=== PATIENT | female | born 1965 ===

== ENCOUNTER 2024-04-11 09:57 | Outpatient (AMB) | payer OTHER, SELFPAY ==
--- NOTE | 2024-04-11 09:59 | MHC.PC.OV ---
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 Intake Note: Patient is here with history of asthma. 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 HPI Details New Patient? ?? Prior PCP:?Dr Jones Last office visit/CPE:? about 1 yr Acute issue(s):? ?? PMHx:? Asthma, IBS, Colon Polyps - last colonoscopy at [facility], Uterine Polyps - Dr Ornelas. L breast lump SurgHx:?L Lumpectomy FHx:? Dad: Lung CA. Mom: TIA. Breast CA in [place], Aunt, Older sister. SocHx:? Nonsmoker. EtOH None. No drugs PFSH Medical History (Updated 04/11/24 @ 10:35 by Dawit Walden) Uterine polyp IBS (irritable bowel syndrome) Allergies Asthma Surgical History (Updated 04/11/24 @ 10:11 by Bernie Gutierrez CMA) H/O colonoscopy H/O lumpectomy Family History (Updated 04/11/24 @ 10:14 by Bernie Gutierrez CMA) Maternal Aunt Breast cancer Maternal Grandmother Breast cancer Father Lung cancer Social History Household Members: Spouse Both parents involved: No Caregiver staying overnight: No Housing: House Are you a primary career placement services counselor to a significant other at home: No Do you presently have visiting nurse or other home services: No 75 years or older and lives alone: No Alcohol intake: never Patient Tobacco Use Status: Never used Tobacco e-Cigarette/Vaping Use: Never Used service: No Current occupational status: employed Current occupation: [employer]. Cognitive needs: No Hearing needs: No Vision needs: Yes (Patient wears glasses.) Questionnaire ACT Questionnaire In the past 4 weeks, how much of the time did your asthma keep you from getting as much done at work, school or at home?: A little of the time During the past 4 weeks, how often have you had shortness of breath?: 1-2 times a week During the past 4 weeks, how often did your asthma symptoms wake you up at night or earlier than usual in the morning?: Not at all During the past 4 weeks, how often have you had to use your rescue inhaler or nebulizer medication?: Not at all How would you rate your asthma control during the past 4 weeks?: Well controlled Score: 22 Review of Systems Const Denies chills, Denies fatigue, Denies fever(s), Denies headache(s) and Denies weakness ENT Denies dizziness and Denies headache(s) Card Denies chest pain, Denies lightheadedness, Denies dyspnea and Denies other (Palpitations) Resp Denies cough, Denies dyspnea, Denies wheezing and Denies other ( shortness of breath) Musc Denies numbness and Denies tingling Neuro Denies dizziness, Denies headache(s), Denies numbness, Denies tingling, Denies paresthesias and Denies weakness Psych Denies anxiety and Denies depression Endo Denies fatigue Aller/Immun Denies wheezing Physical exam (Primary Care) BMI result Body Mass Index 29.7 Tobacco/Smoking Status: Tobacco use Status Tobacco use date assessed 04/11/24 04/11/24 10:13 Patient Tobacco Use Status Never used Tobacco 04/11/24 10:13 e-Cigarette/Vaping Use Never Used 04/11/24 10:13 Const General: no acute distress and well developed Nutritional Appearance: well nourished Orientation/consciousness: patient oriented x3 HENMT Head: Yes normocephalic and Yes atraumatic Eyes General: appearance normal, both eyes and all related structures Pupils: Equal, round and reactive pupils present EOM: EOMs intact bilaterally Resp Effort & Inspection: normal respiratory effort Auscultation: clear to auscultation bilaterally Cardio Rate: regular rate Rhythm: regular rhythm Heart sounds: S1 normal heart sound present, S2 normal heart sound present, no gallops, no murmurs and no rubs Neuro General: patient oriented x3 and gait normal Cranial nerves: Yes Equal, round and reactive pupils present Psych Affect: normal affect Assessment and Plan Assessment & Plan (1) Asthma: Code(s): J45.909 - Unspecified asthma, uncomplicated Plan: Triggers?include?exercise Will?send?script?for?Ventolin?inhaler-she?notes?that?last?script?for?an?albuterol?inhaler?was?over?70?dollars.??May?need?to?try?a?different?brand She?can?try?pretreating?with?albuterol?before?exercise (2) History of left breast cancer: Code(s): Z85.3 - Personal history of malignant neoplasm of breast Plan: S/p?lumpectomy (3) History of colon polyps: Code(s): Z86.010 - Personal history of colonic polyps Plan: Will?request?report (4) Uterine polyp: Code(s): N84.0 - Polyp of corpus uteri Plan: Follow-up?with??[facility]?as?recommended (5) IBS (irritable bowel syndrome): Code(s): K58.9 - Irritable bowel syndrome without diarrhea Plan: History?of?IBS She?says?that?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 Panel Fast Today Z00.00 - Encounter for general adult medical examination without abnormal findings Lipid Panel Today Z00.00 - Encounter for general adult medical examination without abnormal findings TSH reflex Free T4 Today Z00.00 - Encounter for general adult medical examination without abnormal findings Medications: New albuterol sulfate 90 mcg/actuation (Ventolin HFA) 2 puffs inhalation Q4-6H 30 days PRN 8.5 grams 3RF shortness of breath or wheezing Coding Level of Care Code New Pt Level 3 (79514) Diagnoses Asthma J45.909 History of left breast cancer Z85.3 History of colon polyps Z86.010 Uterine polyp N84.0 IBS (irritable bowel syndrome) K58.9 Laboratory exam ordered as part of routine general medical examination Z00.00
[2024-04-11 10:02] VITALS: BP 110/58; PULSE 82; O2SAT 97; BMI 29.7
== END 2024-04-11 10:43 | disposition home or self-care (01) ==
PROVIDERS: PCP Family Medicine; Visit Provider Family Medicine
DX: J45.909 Unspecified asthma, uncomplicated (principal); Z85.3 Personal history of malignant neoplasm of breast; Z86.010 Personal history of colon polyps; N84.0 Polyp of corpus uteri; K58.9 Irritable bowel syndrome, unspecified; Z00.00 Encounter for general adult medical examination without abnormal findings
CPT/HCPCS: 99203

== ENCOUNTER 2024-04-12 08:58 | Outpatient (REF) | payer OTHER, SELFPAY ==
[2024-04-12 11:18] LABS: Appearance Urine Clear; Color Urine Yellow; Glucose Urine UA Negative (Negative); Leukocyte Esterase Urine Moderate (2+) (Negative); Nitrite Urine Negative (Negative); PH 6.5 (5.0-9.0); UMIC TRIGGER UA YES; Urine Blood Negative (Negative); Urine Ketones Negative (Negative); Urine Protein Negative (Neg-Trace)
[2024-04-12 11:26] LABS: Bacteria Urine None Seen (None Seen); Hyaline Casts Urine 0-2 /LPF (0-2); RBC Urine 0-2 /HPF (0-2)
[2024-04-12 11:47] LABS: Alanine Aminotransferase 11 U/L (0-31); Albumin Level 3.8 g/dL (3.5-5.0); Alkaline Phosphatase 68 U/L (39-117); Anion Gap 9 (12-20); Aspartate Amino Transferase 13 U/L (5-31); Bilirubin Total 0.6 mg/dL (0.0-1.0); Blood Urea Nitrogen 14 mg/dL (9-16); Calcium 8.8 mg/dL (8.4-10.2); Carbon Dioxide 27 mmol/L (22-29); Chloride 104 mmol/L (96-108); Cholesterol 251 mg/dL (<200); Estimated Glomerular Filt Rate > 60; Glucose Fasting 98 mg/dL (60-99); HDL Cholesterol 44 mg/dL (>40); LDL Cholesterol Calculated 188 mg/dL (<100); Potassium 4.1 mmol/L (3.3-5.1); Sodium 136 mmol/L (135-145); TSH reflex Free T4 3.61 uIU/mL (0.32-4.0); Total Protein 6.7 g/dL (6.5-8.0); Triglycerides 99 mg/dL (<150)
[2024-04-12 12:10] LABS: Creatinine Urine 141.83 mg/dL; Microalbum/Creatinine Ratio Ur 4.2 ug/mg cr (<30)
== END 2024-04-12 08:59 | disposition home or self-care (01) ==
LOC: HO.WFDLDS 08:58
PROVIDERS: Visit Provider Family Medicine
DX: Z00.00 Encounter for general adult medical examination without abnormal findings (principal); I10 Essential (primary) hypertension
CPT/HCPCS: 36415; 80053; 80061; 81001; 81003; 82043; 82570; 84443

== ENCOUNTER 2024-07-06 16:06 | Outpatient (AMB) | payer OTHER, SELFPAY ==
--- NOTE | 2024-07-06 16:18 | A.OFFPC_ITS ---
Vital Signs 07/06/24 16:23 Height 5 ft 8 in Weight 191 lb 4 oz BMI 29.1 BP 120/60 Blood Pressure Location Lt brachial Position Sitting Respiration 12 Pulse 98 Pulse Source Pulse Oximeter Temp 97.7 F Temp Source Tympanic Pulse Oximetry (%) 98 Oxygen Delivery Method Room Air Intake Visit Reasons: CPE with f/u labs and health maint. Intake Note: CPE Is last menstrual period known: No Post menopausal: Yes Patient : No Allergies No Known Allergies Allergy (Verified 07/06/24 16:22) Medication List - Last Reconciled 07/06/24 by Sanjiv Wallace MD albuterol sulfate 90 mcg/actuation (Ventolin HFA) 2 puffs inhalation Q4-6H PRN 30 days norethindrone ac-eth estradiol 1-20 mg-mcg (Junel) tabs PO Tobacco use date assessed: 04/11/24 Dental Screening Dental Screen Date: 04/11/24 HPI CPE with f/u labs and health maint. HPI Details 58 y/o female presents for a CPE with f/ u labs and health maintenance. Labs drawn 04/12/24. Reviewed labs with pt. Triglycerides 99. TC 251. LDL 188. HDL 44. TSH 3.61. Pt notes Ventolin worked well for her asthma. Pt reports chest tightness. Denies any chest pain on exertion. She notes it could be due to anxiety. Reports hx of colon polyps. [facility], [facility] Medical History (Updated 07/06/24 @ 16:57 by Dawit Walden) Uterine polyp IBS (irritable bowel syndrome) Allergies Asthma Surgical History (Updated 04/11/24 @ 10:11 by Bernie Gutierrez CMA) H/O colonoscopy H/O lumpectomy Family History (Updated 04/11/24 @ 10:14 by Bernie Gutierrez CMA) Maternal Aunt Breast cancer Maternal Grandmother Breast cancer Father Lung cancer Social History (Updated 04/11/24 @ 10:18 by Bernie Gutierrez CMA) Household Members: Spouse Both parents involved: No Caregiver staying overnight: No Housing: House Are you a primary animal daycare provider to a significant other at home: No Do you presently have visiting nurse or other home services: No 75 years or older and lives alone: No Alcohol intake: never Patient Tobacco Use Status: Never used Tobacco e-Cigarette/Vaping Use: Never Used Patient : No service: No Current occupational status: employed Current occupation: [employer]. Cognitive needs: No Hearing needs: No Vision needs: Yes (Patient wears glasses.) Questionnaire PHQ-9 Over the last 2 weeks, how often have you been bothered by any of the following problems? 1. Little interest or pleasure in doing things: not at all 2. Feeling down, depressed, or hopeless: not at all 3. Trouble falling or staying asleep, or sleeping too much: more than half the days 4. Feeling tired or having little energy: not at all 5. Poor appetite or overeating: several days 6. Feeling bad about yourself - or that you are a failure or have let yourself or your family down: not at all 7. Trouble concentrating on things, such as reading the newspaper or watching television: not at all 8. Moving or speaking so slowly that other people could have noticed. Or the opposite - being so fidgety or restless that you have been moving around a lot more than usual: not at all 9. Thoughts that you would be better off or of hurting yourself in some way: not at all Total score: 3 Depression Screening Interpretation: Negative Depression Screening Done: Yes 37117 - PHQ-9 Billing: Yes Source: Developed by Drs. Bernardino Preston, Marie Lainez, Nitin Herrera and colleagues, with an educational darius from [employer]. Thrive Questionnaire Date Thrive assessed: 07/06/24 I am a: Patient What is your living situation today?: I have a steady place to live Within the past 12 months, did the food you bought not last and you didn't have the money to get more?: Never true Within the past 12 months, did you worry whether your food would run out before you got money to buy more?: Never true Do you have trouble paying for medicines?: No Do you have trouble getting transportation to medical appointments?: No Do you have trouble paying your heating and electricity bill?: No Do you have trouble taking care of your child, family member or friend?: No Do you have trouble with day-to-day activities such as bathing, preparing meals, shopping, managing finances, etc.?: No Are you currently unemployed and looking for a job?: No Are you interested in more education?: No Please select the resources that you would like help with: None Currently or been in a relationship where the following occur: No concerns reported THRIVE Score: 0 AUDIT C Alcohol Use Questionnaire (AUDIT-C) 1. How often do you have a drink containing alcohol?: Never 3. How often do you have six or more drinks on one occasion?: Never Total Score: 0 JERRICA-7 AMB Questionnaire JERRICA-7 Date JERRICA - 7 assessed: 07/06/24 Feeling nervous, anxious, or on edge: 0 = Not at all Not being able to stop or control worryin = Not at all Worrying too much about different things: 0 = Not at all Trouble relaxin = Not at all Being so restless that it is hard to sit still: 0 = Not at all Becoming easily annoyed or irritable: 0 = Not at all Feeling afraid as if something awful might happen: 0 = Not at all Total JERRICA-7 score (0-4 normal; 5-9 mild; 10-14 moderate; 15-21 severe): 0 Source: Developed by Drs. Bernardino Preston, Marie Lainez, Nitin Herrera and colleagues, with an educational darius from [employer]. JERRICA-7 Assessment Billing JERRICA-7 Assessment Tool: JERRICA-7 Assessment 15155 Review of Systems Const Denies chills, Denies fatigue, Denies fever(s), Denies headache(s) and Denies weakness Eyes Denies change in vision ENT Denies dizziness, Denies headache(s), Denies hearing loss, Denies nasal congestion, Denies sinus pain, Denies sinus pressure and Denies sore throat Card Denies chest pain, Denies lightheadedness, Denies dyspnea and Denies other (palpitations) Resp Denies cough, Denies dyspnea and Denies wheezing GI Denies abdominal pain, Denies melena, Denies hematochezia, Denies change in bowel habits, Denies dyspepsia and Denies nausea Denies hematuria and Denies dysuria Musc Denies abnormal gait, Denies myalgias, Denies arthralgias, Denies numbness and Denies tingling Skin/Breast Denies rash, Denies unusual bruising and Denies wounds Neuro Denies abnormal gait, Denies dizziness, Denies headache(s), Denies memory loss, Denies numbness, Denies Sensory deficit (Neuro), Denies tingling and Denies weakness Psych Denies anxiety, Denies depression and Denies memory loss Endo Denies cold intolerance, Denies fatigue, Denies heat intolerance, Denies polydipsia and Denies polyuria Kevon/Lymph Denies easy bleeding and Denies easy bruising Aller/Immun Denies wheezing Physical exam (Primary Care) Vital Signs: Last Vital Signs Temp 97.7 F 07/06/24 16:23 Pulse 98 07/06/24 16:23 Resp 12 07/06/24 16:23 BP 120/60 07/06/24 16:23 Pulse Ox 98 07/06/24 16:23 Oxygen Delivery Method Room Air 07/06/24 16:23 BMI result Body Mass Index 29.1 Tobacco/Smoking Status: Tobacco use Status Tobacco use date assessed 04/11/24 07/06/24 16:27 Patient Tobacco Use Status Never used Tobacco 07/06/24 16:27 e-Cigarette/Vaping Use Never Used 07/06/24 16:27 PHQ-9: PHQ-9 Score PHQ-9: Total score 3 07/06/24 16:27 Depression Screening Interpretation: Negative Thrive Assessment: Date of Thrive Assessment Date Thrive assessed 07/06/24 07/06/24 16:27 Currently or been in a relationship where the following occur: No concerns reported Const General: no acute distress, well developed, alert and awake Nutritional Appearance: well nourished Orientation/consciousness: patient oriented x3 HENMT Head: Yes normocephalic and Yes atraumatic Ears: hearing grossly normal bilaterally and TM's normal bilaterally General nose exam: Normal external nose present and Normal nares present Mouth: Normal oral and palatal mucosa present and moist mucous membranes Teeth and gingiva: dentition normal Throat: Yes posterior oropharynx normal Eyes General: appearance normal, both eyes and all related structures Pupils: Equal, round and reactive pupils present and Pupil accommodation reflex normal EOM: EOMs intact bilaterally Neck Neck: Yes normal visual inspection, Yes no lymphadenopathy and Yes trachea midli ne Thyroid: Thyroid normal Carotids: no bruits Lymphatic: no lymphadenopathy noted Chest Chest palpation & inspection: normal inspection of the chest Resp Effort & Inspection: normal respiratory effort Auscultation: clear to auscultation bilaterally Cardio Rate: regular rate Rhythm: regular rhythm Heart sounds: S1 normal heart sound present, S2 normal heart sound present, no gallops, no murmurs and no rubs Bruits: no abdominal aortic bruits and no carotid bruits GI Palpation (GI): No Abdominal aortic bruit present, Soft to palpation, nontender, No hepatosplenomegaly present and No Rebound tenderness present Auscultation: normal bowel sounds General: Yes no CVA tenderness Back/Spine/Pelvis Back: no CVA tenderness Cervical Spine: cervical ROM normal and No Cervical spine tenderness Thoracic/Lumbar Spine: thoraco-lumbar ROM normal, No pain with thoraco-lumbar ROM, No thoracic spinal tenderness and No lumbar spinal tenderness Skin Lesions: no lesions Rashes: no rashes Trauma: no lacerations or abrasions Wounds: no wounds Nails: normal Neuro General: patient oriented x3 Cranial nerves: Yes Equal, round and reactive pupils present Cognition (Neuro): normal cognition Gait exam (Neuro): Normal gait present Motor exam (neuro): 5/5 motor strength present throughout Sensory Exam: No Sensory deficit (Neuro) Deep tendon reflexes (DTR's): Right patellar reflex intensity grade: 2+ and Left patellar reflex intensity grade: 2+ Extrem General: Yes normal to inspection and No edema Psych Appearance: grossly normal Affect: normal affect Attitude: cooperative Thought process: Normal thought process present Assessment and Plan Assessment & Plan (1) Adult general medical exam: Code(s): Z00.00 - Encounter for general adult medical examination without abnormal findings Plan: 58-year-old?female?presents?for?complete?physical?exam Encouraged?healthy?diet?with?active?lifestyle?and?plenty?of?exercise (2) Hypercholesteremia: Code(s): E78.00 - Pure hypercholesterolemia, unspecified Plan: LDL?cholesterol?is?too?high. Encouraged?a?diet?low?in?saturated?fats?and?cholesterol Encouraged?exercise?and?weight?loss She?will?work?on?these?lifestyle?changes?and?get?her?blood?drawn?prior?to?next?v isit?so?we?can?review We?discussed?that?if?she?is?not?able?to?bring?her?cholesterol?down?we?should?t alk?about?medication. (3) Asthma: Code(s): J45.909 - Unspecified asthma, uncomplicated Plan: Patient?was?able?to?pick?up?a?Ventolin?script?and?she?is?using?this.??This?has?h elped. She?does?noted?occasional?chest?tightness?and?albuterol?helps?with?this (4) Chest tightness: Code(s): R07.89 - Other chest pain Plan: Patient?notices?some?chest?tightness?which?she?associates?with?st ress.??Not?associated?with?physical?exertion but?can?feel?qualitatively?different?than?tightness?from?asthma. She?also?has?high?cholesterol Will?get?EKG?at?the?beginning?of?her?next?visit. Advised?he r?if?she?is?having?chest?pain?that?does?not?improve?in?a?couple?of?minutes?with? relaxation,?she?should?seek?medical?attention. (5) Screening for colon cancer: Code(s): Z12.11 - Encounter for screening for malignant neoplasm of colon Plan: Colonoscopy at [facility] (6) Screening for cervical cancer: Code(s): Z12.4 - Encounter for screening for malignant neoplasm of cervix Plan: Managed?by??[facility] Will?request?report (7) Breast cancer screening by mammogram: Code(s): Z12.31 - Encounter for screening mammogram for malignant neoplasm of breast Plan: Mammogram last yr and managed by [facility] Also pap smear Orders: Orders Comprehensive [place]. Panel Fast Today E78.00 - Pure hypercholesterolemia, unspecified, Z00.00 - Encounter for general adult medical examination without abnormal findings AMB EKG-In Office Today E78.00 - Pure hypercholesterolemia, unspecified, R07.89 - Other chest pain Lipid Panel Today E78.00 - Pure hypercholesterolemia, unspecified, Z00.00 - Encounter for general adult medical examination without abnormal findings Coding Level of Care Code Est Pt Level 3 (80718) Est Pt Prev Care 40-64y(65817) Diagnoses Adult general medical exam Z00.00 Hypercholesteremia E78.00 Asthma J45.909 Chest tightness R07.89 Screening for colon cancer Z12.11 Screening for cervical cancer Z12.4 Breast cancer screening by mammogram Z12.31 Additional Codes JERRICA-7 Assessment Billing - JERRICA-7 Assessment Tool: JERRICA-7 Assessment 30203 ([id number])
[2024-07-06 16:23] VITALS: BP 120/60; PULSE 98; RESP 12; TEMP 36.5; O2SAT 98; BMI 29.1
== END 2024-07-06 17:10 | disposition home or self-care (01) ==
PROVIDERS: PCP Family Medicine; Visit Provider Family Medicine
DX: Z00.00 Encounter for general adult medical examination without abnormal findings (principal); R07.89 Other chest pain; E78.00 Pure hypercholesterolemia, unspecified; J45.909 Unspecified asthma, uncomplicated; Z12.11 Encounter for screening for malignant neoplasm of colon; Z12.31 Encounter for screening mammogram for malignant neoplasm of breast

== ENCOUNTER → 2024-07-06 16:06 | Outpatient (BNVA) | payer OTHER, SELFPAY | PROVIDERS: PCP Family Medicine; Visit Provider Family Medicine | DX: Z00.00 Encounter for general adult medical examination without abnormal findings (principal); E78.00 Pure hypercholesterolemia, unspecified; J45.909 Unspecified asthma, uncomplicated; R07.89 Other chest pain | CPT/HCPCS: 96127 ==

== ENCOUNTER 2024-10-17 14:20 | Outpatient (AMB) | payer OTHER, SELFPAY ==
--- NOTE | 2024-10-17 15:28 | A.OFFPC_ITS ---
Vital Signs 10/17/24 15:51 Height 5 ft 8 in Weight 186 lb BMI 28.3 BP 100/60 Blood Pressure Location Rt brachial Position Sitting Respiration 16 Pulse 72 Temp 98.4 F Temp Source Oral Pulse Oximetry (%) 99 Oxygen Delivery Method Room Air Intake Visit Reasons: f/u hypercholesterolemia Allergies No Known Allergies Allergy (Verified 10/17/24 15:53) Tobacco use date assessed: 04/11/24 Dental Screening Dental Screen Date: 04/11/24 HPI f/u hypercholesterolemia HPI Details 58 y/o female presents to f/u HLD. Pt had some chest tightness with emotional stress. Not with physical exertion. No recent lipid panel to review for her lipids. HPI Comments History of Present Illness Details Documentation assistance for Sanjiv Wallace MD, was provided by Dawit Walden,? Grab Hooker on 10/17/2024 at 3:45 PM EST. I, Dr. Wallace, have read, observed, and verified documentation. ?? PFS Medical History (Updated 10/17/24 @ 16:04 by Dawit Walden) Uterine polyp IBS (irritable bowel syndrome) Allergies Asthma Surgical History (Updated 04/11/24 @ 10:11 by Bernie Gutierrez CMA) H/O colonoscopy H/O lumpectomy Family History (Updated 04/11/24 @ 10:14 by Bernie Gutierrez CMA) Maternal Aunt Breast cancer Maternal Grandmother Breast cancer Father Lung cancer Social History (Updated 04/11/24 @ 10:18 by Bernie Gutierrez CMA) Household Members: Spouse Both parents involved: No Caregiver staying overnight: No Housing: House Are you a primary insurance healthcare consultant to a significant other at home: No Do you presently have visiting nurse or other home services: No 75 years or older and lives alone: No Alcohol intake: never Patient Tobacco Use Status: Never used Tobacco e-Cigarette/Vaping Use: Never Used service: No Current occupational status: employed Current occupation: [employer]. Cognitive needs: No Hearing needs: No Vision needs: Yes (Patient wears glasses.) Questionnaire Thrive Questionnaire Date Thrive assessed: 07/06/24 I am a: Patient What is your living situation today?: I choose not to answer this question Within the past 12 months, did the food you bought not last and you didn't have the money to get more?: I choose not to answer this question Within the past 12 months, did you worry whether your food would run out before you got money to buy more?: I choose not to answer this question Do you have trouble paying for medicines?: I choose not to answer this question Do you have trouble getting transportation to medical appointments?: I choose not to answer this question Do you have trouble paying your heating and electricity bill?: I choose not to answer this question Do you have trouble taking care of your child, family member or friend?: I choose not to answer this question Do you have trouble with day-to-day activities such as bathing, preparing meals, shopping, managing finances, etc.?: I choose not to answer this question Are you currently unemployed and looking for a job?: I choose not to answer this question Are you interested in more education?: I choose not to answer this question Please select the resources that you would like help with: None Currently or been in a relationship where the following occur: I choose not to answer THRIVE Score: 0 AUDIT C Alcohol Use Questionnaire (AUDIT-C) 1. How often do you have a drink containing alcohol?: Never Total Score: 0 JERRICA-7 AMB Questionnaire JERRICA-7 Date JERRICA - 7 assessed: 07/06/24 Feeling nervous, anxious, or on edge: 0 = Not at all Not being able to stop or control worryin = Not at all Worrying too much about different things: 0 = Not at all Trouble relaxin = Not at all Being so restless that it is hard to sit still: 0 = Not at all Becoming easily annoyed or irritable: 0 = Not at all Feeling afraid as if something awful might happen: 0 = Not at all Total JERRICA-7 score (0-4 normal; 5-9 mild; 10-14 moderate; 15-21 severe): 0 Source: Developed by Drs. Bernardino Preston, Marie Lainez, Nitin Herrera and colleagues, with an educational darius from [email or web address]. Review of Systems Const Denies chills, Denies fatigue, Denies fever(s), Denies headache(s) and Denies weakness ENT Denies dizziness and Denies headache(s) Card Denies dyspnea Resp Denies cough, Denies dyspnea, Denies wheezing and Denies other (shortness of breath) Musc Denies numbness and Denies tingling Neuro Denies dizziness, Denies headache(s), Denies numbness, Denies tingling and Denies weakness Psych Denies anxiety and Denies depression Endo Denies fatigue Aller/Immun Denies wheezing Physical exam (Primary Care) Vital Signs: Last Vital Signs Temp 98.4 F 10/17/24 15:51 Pulse 72 10/17/24 15:51 Resp 16 10/17/24 15:51 BP 100/60 10/17/24 15:51 Pulse Ox 99 10/17/24 15:51 Oxygen Delivery Method Room Air 10/17/24 15:51 BMI result Body Mass Index 28.3 Tobacco/Smoking Status: Tobacco use Status Tobacco use date assessed 04/11/24 10/17/24 15:28 Patient Tobacco Use Status Never used Tobacco 10/17/24 15:28 e-Cigarette/Vaping Use Never Used 10/17/24 15:28 Thrive Assessment: Date of Thrive Assessment Date Thrive assessed 07/06/24 10/17/24 15:28 Currently or been in a relationship where the following occur: I choose not to answer Const General: well developed; No acute distress Nutritional Appearance: well nourished Orientation/consciousness: patient oriented x3 [facility] Head: Yes normocephalic and Yes atraumatic Eyes General: appearance normal, both eyes and all related structures Pupils: Equal, round and reactive pupils present EOM: EOMs intact bilaterally Resp Effort & Inspection: normal respiratory effort Auscultation: clear to auscultation bilaterally Cardio Rate: regular rate Rhythm: regular rhythm Heart sounds: S1 normal heart sound present, S2 normal heart sound present, no gallops, no murmurs and no rubs Neuro General: patient oriented x3 and gait normal Cranial nerves: Yes Equal, round and reactive pupils present Psych Affect: normal affect Coding Level of Care Code Est Pt Level 4 (08098) Diagnoses Hypercholesteremia E78.00 Chest tightness R07.89 Anxiety F41.9 Assessment & Plan Assessment & Plan (1) Hypercholesteremia: Code(s): E78.00 - Pure hypercholesterolemia, unspecified Category: Medical Plan: History?of?elevated?lipids.??Had?ordered?a ?lipid?panel?at?the?end?of?her?last?visit?and?patient?has?not?gotten?this?drawn? yet. Will?ask?her?to?get?her?labs?drawn?and?we?can?review?subsequently (2) Chest tightness: Code(s): R07.89 - Other chest pain Category: Medical Plan: Patient?described ?chest?tightness?associated?with?emotional?stress?but?not?with?exertion. EKG: ?Normal?sinus?rhythm?with?sinus?arrhythmia,?normal?axis,?no?hypertrophy,?no?ST-T -wave?changes EKG?looks?okay She?will?let ?me?know?if?this?is?not?improving?with?improvement?of?her?anxiety?or?if?she?has? any?new?concerning?symptoms?or?worsening?symptoms. (3) Anxiety: Code(s): F41.9 - Anxiety disorder, unspecified Category: Medical Plan: Patient?says?she?is?working?on?g etting?another?job?and?feels?this?will?improve?her?symptoms. She?let?me?know?if?she?is?still?having?anxiety?issues?after?making?this?change?o r?if?she?is?unable?do?so.
[2024-10-17 15:51] VITALS: BP 100/60; PULSE 72; RESP 16; TEMP 36.9; O2SAT 99; BMI 28.3
== END 2024-10-17 16:07 | disposition home or self-care (01) ==
PROVIDERS: PCP Family Medicine; Visit Provider Family Medicine
DX: E78.00 Pure hypercholesterolemia, unspecified (principal); R07.89 Other chest pain; F41.9 Anxiety disorder, unspecified

== ENCOUNTER 2024-11-12 08:40 | Outpatient (REF) | payer OTHER, SELFPAY ==
[2024-11-12 10:07] LABS: Alanine Aminotransferase 19 U/L (0-31); Albumin Level 3.9 g/dL (3.5-5.0); Alkaline Phosphatase 54 U/L (39-117); Anion Gap 10 (12-20); Aspartate Amino Transferase 17 U/L (5-31); Bilirubin Total 0.4 mg/dL (0.0-1.0); Blood Urea Nitrogen 14 mg/dL (9-16); Calcium 9.2 mg/dL (8.4-10.2); Carbon Dioxide 27 mmol/L (22-29); Chloride 105 mmol/L (96-108); Cholesterol 236 mg/dL (<200); Estimated Glomerular Filt Rate > 60; Glucose Fasting 94 mg/dL (60-99); HDL Cholesterol 42 mg/dL (>40); LDL Cholesterol Calculated 171 mg/dL (<100); Potassium 4.4 mmol/L (3.3-5.1); Sodium 138 mmol/L (135-145); Total Protein 7.3 g/dL (6.5-8.0); Triglycerides 118 mg/dL (<150)
== END 2024-11-12 08:41 | disposition home or self-care (01) ==
LOC: HO.LAB 08:40
PROVIDERS: PCP Family Medicine; Visit Provider Family Medicine
DX: Z00.00 Encounter for general adult medical examination without abnormal findings (principal); E78.00 Pure hypercholesterolemia, unspecified
CPT/HCPCS: 36415; 80053; 80061

== ENCOUNTER 2024-11-14 15:42 | Outpatient (AMB) | payer OTHER, SELFPAY ==
--- NOTE | 2024-11-14 15:39 | MHC.PC.OV ---
Intake Visit Reasons: f/u labs via telemedicine Intake Note: follow up on labs Allergies No Known Allergies Allergy (Verified 11/14/24 15:39) Medication List - Last Reconciled 11/14/24 by Sanjiv Wallace MD albuterol sulfate 90 mcg/actuation (Ventolin HFA) 2 puffs inhalation Q4-6H PRN 30 days norethindrone ac-eth estradiol 1-20 mg-mcg (June) tabs PO Tobacco use date assessed: 04/11/24 Dental Screening Dental Screen Date: 04/11/24 HPI f/u labs via telemedicine HPI Details 58 y/o female presents to f/u labs via telemedicine. Labs drawn 11/12/24. Reviewed labs with pt. Triglycerides 118. TC 236. LDL 171. HDL 42. PFSH Medical History (Updated 10/17/24 @ 16:04 by Dawit Walden) Uterine polyp IBS (irritable bowel syndrome) Allergies Asthma Surgical History (Updated 04/11/24 @ 10:11 by Bernie Gutierrez [facility]) H/O colonoscopy H/O lumpectomy Family History (Updated 04/11/24 @ 10:14 by Bernie Gutierrez CMA) Maternal Aunt Breast cancer Maternal Grandmother Breast cancer Father Lung cancer Social History (Updated 04/11/24 @ 10:18 by Bernie Gutierrez [facility]) Household Members: Spouse Both parents involved: No Caregiver staying overnight: No Housing: House Are you a primary rn intensive care unit to a significant other at home: No Do you presently have visiting nurse or other home services: No 75 years or older and lives alone: No Alcohol intake: never Patient Tobacco Use Status: Never used Tobacco e-Cigarette/Vaping Use: Never Used service: No Current occupational status: employed Current occupation: [employer]. Cognitive needs: No Hearing needs: No Vision needs: Yes (Patient wears glasses.) Questionnaire Thrive Questionnaire Date Thrive assessed: 07/06/24 JERRICA-7 AMB Questionnaire JERRICA-7 Date JERRICA - 7 assessed: 07/06/24 Source: Developed by Drs. Bernardino Preston, Marie Lainez, Nitin Herrera and colleagues, with an educational darius from [facility]. Review of Systems Const Denies chills, Denies fatigue, Denies fever(s), Denies headache(s) and Denies weakness ENT Denies dizziness and Denies headache(s) Card Denies dyspnea Resp Denies cough, Denies dyspnea, Denies wheezing and Denies other (shortness of breath) Musc Denies numbness and Denies tingling Neuro Denies dizziness, Denies headache(s), Denies numbness, Denies tingling and Denies weakness Psych Denies anxiety and Denies depression Endo Denies fatigue Aller/Immun Denies wheezing Physical exam (Primary Care) Tobacco/Smoking Status: Tobacco use Status Tobacco use date assessed 04/11/24 11/14/24 15:40 Patient Tobacco Use Status Never used Tobacco 11/14/24 15:40 e-Cigarette/Vaping Use Never Used 11/14/24 15:40 Thrive Assessment: Date of Thrive Assessment Date Thrive assessed 07/06/24 11/14/24 15:40 Telehealth Telehealth Telehealth Platform: Telephone Location of provider rendering services: practice address Location of patient: address on file Patient Identification confirmed using: Name, : Yes Telehealth method: voice only Patient verbally consented to treatment: Yes Patient verbally consented to billing insurance company: Yes Patient informed of any privacy concerns related to visit: Yes Minutes spent on Phone/Video with Pt.: 11 Coding Level of Care Code Tele Est Pt Level 2 (14711) Diagnoses Hypercholesteremia E78.00 Assessment & Plan Assessment & Plan (1) Hypercholesteremia: Code(s): E78.00 - Pure hypercholesterolemia, unspecified Category: Medical Plan: Lipids?are?still?very?high, in?particularly?LDL?cholesterol Send?script?for?atorvastatin?but?patient?has?received?message?that?cost?would?be?150?dollars. Will?ask?the?medical?registrar assistant?to?contact?her?tomorrow?and?or?her?insurance?to?see?what?statin?will?be?covered?I?will?send?that. Will?follow-up?in?about?3?months?to?recheck?lipids Orders: Orders Lipid Panel 1 Day E78.00 - Pure hypercholesterolemia, unspecified, Z00.00 - Encounter for general adult medical examination without abnormal findings Comprehensive [place]. Panel Fast Today E78.00 - Pure hypercholesterolemia, unspecified, Z00.00 - Encounter for general adult medical examination without abnormal findings Medications: New atorvastatin 40 mg PO BEDTIME 90 days 90 tabs 3RF
== END 2024-11-14 17:05 | disposition home or self-care (01) ==
LOC: HO.HMCFM 15:42
PROVIDERS: PCP Family Medicine; Visit Provider Family Medicine
DX: E78.00 Pure hypercholesterolemia, unspecified (principal)

== ENCOUNTER 2024-12-09 12:55 | Outpatient (AMB) | payer OTHER, SELFPAY ==
--- NOTE | 2024-12-09 13:15 | A.OFFPC_ITS ---
Vital Signs 12/09/24 13:18 Height 5 ft 8 in Weight 186 lb BMI 28.3 BP 90/60 Blood Pressure Location Rt brachial Position Sitting Respiration 12 Pulse 85 Pulse Source Pulse Oximeter Temp 98.7 F Temp Source Oral Pulse Oximetry (%) 97 Oxygen Delivery Method Room Air Intake Visit Reasons: anxiety medication Intake Note: pt has been having a hard time at work causing anxiety and would like to discuss this at todays appt to get some help to manage her stress. 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 Does not have a therapist. She notes she feels she would be fine once her work situation resolves. Otherwise she states she needs something immediate for her anxiety. [facility] Medical History (Updated 10/17/24 @ 16:04 by Dawit Walden) Uterine polyp IBS (irritable bowel syndrome) Allergies Asthma Surgical History (Updated 04/11/24 @ 10:11 by Bernie Gutierrez CMA) H/O colonoscopy H/O lumpectomy Family History (Updated 04/11/24 @ 10:14 by Bernie Gutierrez CMA) Maternal Aunt Breast cancer Maternal Grandmother Breast cancer Father Lung cancer Social History (Updated 04/11/24 @ 10:18 by Bernie Gutierrez CMA) Household Members: Spouse Both parents involved: No Caregiver staying overnight: No Housing: House Are you a primary career development coordinator/teacher to a significant other at home: No Do you presently have visiting nurse or other home services: No 75 years or older and lives alone: No Alcohol intake: never Patient Tobacco Use Status: Never used Tobacco e-Cigarette/Vaping Use: Never Used service: No Current occupational status: employed Current occupation: [employer]. Cognitive needs: No Hearing needs: No Vision needs: Yes (Patient wears glasses.) Questionnaire Thrive Questionnaire Date Thrive assessed: 10/17/24 I am a: Patient What is your living situation today?: I choose not to answer this question Within the past 12 months, did the food you bought not last and you didn't have the money to get more?: I choose not to answer this question Within the past 12 months, did you worry whether your food would run out before you got money to buy more?: I choose not to answer this question Do you have trouble paying for medicines?: I choose not to answer this question Do you have trouble getting transportation to medical appointments?: I choose not to answer this question Do you have trouble paying your heating and electricity bill?: I choose not to answer this question Do you have trouble taking care of your child, family member or friend?: I choose not to answer this question Do you have trouble with day-to-day activities such as bathing, preparing meals, shopping, managing finances, etc.?: I choose not to answer this question Are you currently unemployed and looking for a job?: I choose not to answer this question Are you interested in more education?: I choose not to answer this question Please select the resources that you would like help with: None Currently or been in a relationship where the following occur: I choose not to answer THRIVE Score: 0 JERRICA-7 AMB Questionnaire JERRICA-7 Date JERRICA - 7 assessed: 07/06/24 Source: Developed by Drs. Bernardino Preston, Marie Lainez, Nitin Herrera and colleagues, with an educational darius from [employer]. Review of Systems Const Denies chills, Denies fatigue, Denies fever(s), Denies headache(s) and Denies weakness ENT Denies dizziness and Denies headache(s) Card Denies dyspnea Resp Denies cough, Denies dyspnea, Denies wheezing and Denies other (shortness of breath) Musc Denies numbness and Denies tingling Neuro Denies dizziness, Denies headache(s), Denies numbness, Denies tingling and Denies weakness Psych Reports anxiety Endo Denies fatigue Aller/Immun Denies wheezing Physical exam (Primary Care) Vital Signs: Last Vital Signs Temp 98.7 F 12/09/24 13:18 Pulse 85 12/09/24 13:18 Resp 12 12/09/24 13:18 BP 90/60 12/09/24 13:18 Pulse Ox 97 12/09/24 13:18 Oxygen Delivery Method Room Air 12/09/24 13:18 BMI result Body Mass Index 28.3 Tobacco/Smoking Status: Tobacco use Status Tobacco use date assessed 04/11/24 12/09/24 13:21 Patient Tobacco Use Status Never used Tobacco 12/09/24 13:21 e-Cigarette/Vaping Use Never Used 12/09/24 13:21 Thrive Assessment: Date of Thrive Assessment Date Thrive assessed 10/17/24 12/09/24 13:21 Currently or been in a relationship where the following occur: I choose not to answer Const General: well developed; No acute distress Nutritional Appearance: well nourished Orientation/consciousness: [facility] Head: Yes normocephalic and Yes atraumatic Eyes General: appearance normal, both eyes and all related structures Pupils: Equal, round and reactive pupils present EOM: EOMs intact bilaterally Resp Effort & Inspection: normal respiratory effort Auscultation: clear to auscultation bilaterally Cardio Rate: regular rate Rhythm: regular rhythm Heart sounds: S1 normal heart sound present, S2 normal heart sound present, no gallops, no murmurs and no rubs Neuro General: patient oriented x3 and gait normal Cranial nerves: Yes Equal, round and reactive pupils present Psych Affect: normal affect Coding Level of Care Code Est Pt Level 3 (58185) Diagnoses Anxiety F41.9 Hypercholesteremia E78.00 Assessment & Plan Assessment & Plan (1) Anxiety: Code(s): F41.9 - Anxiety disorder, unspecified Category: Medical Plan: Ongoing?anxiety?primarily?due?to?her?job. Discussed?1st?and?2nd?line?medications.??Discussed?SSRIs?and?benzodiazepines. ?Also?discussed?hydroxyzine. Patient?is?hoping?to?have?medication?that?she?does?not?these?have?to?be?t aking?consistently?every?day. We?could?try?some?buspirone.??Risks/benefits?discussed I?also?think?she?may?benefit?from?a?therapist?so?I?will?ask?nurse?navigator?to?m tiny?a?referral. Follow-up?in about?a?month (2) Hypercholesteremia: Code(s): E78.00 - Pure hypercholesterolemia, unspecified Category: Medical Plan: Patient?started?atorvastatin?a?few?weeks?ago?is?tolerating?this Will?be?over?6?weeks?when?she?returns?so?she?will?get?her?labs?drawn ?prior?to?that?visit?and?we?will?review?this?as?well Orders: Orders Comprehensive [place]. Panel Fast Today E78.00 - Pure hypercholesterolemia, unspecified, Z00.00 - Encounter for general adult medical examination without abnormal findings Lipid Panel Today E78.00 - Pure hypercholesterolemia, unspecified, Z00.00 - Encounter for general adult medical examination without abnormal findings Referrals Nurse Navigator Referral F41.9 - Anxiety disorder, unspecified Medications: New buspirone 5 mg PO BID 30 days 60 tabs 1RF
[2024-12-09 13:18] VITALS: BP 90/60; PULSE 85; RESP 12; TEMP 37.1; O2SAT 97; BMI 28.3
== END 2024-12-09 13:49 | disposition home or self-care (01) ==
PROVIDERS: PCP Family Medicine; Visit Provider Family Medicine
DX: F41.9 Anxiety disorder, unspecified (principal); E78.00 Pure hypercholesterolemia, unspecified

== ENCOUNTER → 2024-12-09 12:55 | Outpatient (BNVA) | payer OTHER, SELFPAY | PROVIDERS: PCP Family Medicine; Visit Provider Family Medicine ==

== ENCOUNTER 2025-01-28 09:57 | Outpatient (REF) | payer OTHER, SELFPAY ==
[2025-01-28 11:13] LABS: Alanine Aminotransferase 20 U/L (0-31); Albumin Level 3.9 g/dL (3.5-5.0); Anion Gap 10 (12-20); Aspartate Amino Transferase 21 U/L (5-31); Bilirubin Total 0.4 mg/dL (0.0-1.0); Blood Urea Nitrogen 11 mg/dL (9-16); Calcium 8.9 mg/dL (8.4-10.2); Carbon Dioxide 27 mmol/L (22-29); Chloride 107 mmol/L (96-108); Cholesterol 149 mg/dL (<200); Estimated Glomerular Filt Rate > 60; Glucose Fasting 93 mg/dL (60-99); HDL Cholesterol 40 mg/dL (>40); LDL Cholesterol Calculated 94 mg/dL (<100); Potassium 4.4 mmol/L (3.3-5.1); Sodium 140 mmol/L (135-145); Total Protein 6.8 g/dL (6.5-8.0); Triglycerides 76 mg/dL (<150)
[2025-01-28 12:35] LABS: Alkaline Phosphatase 68 U/L (39-117)
== END 2025-01-28 09:58 | disposition home or self-care (01) ==
LOC: HO.LAB 09:57
PROVIDERS: PCP Family Medicine; Visit Provider Family Medicine
DX: Z00.00 Encounter for general adult medical examination without abnormal findings (principal); E78.00 Pure hypercholesterolemia, unspecified
CPT/HCPCS: 36415; 80053; 80061

== ENCOUNTER 2025-01-30 14:42 | Outpatient (AMB) | payer OTHER, SELFPAY ==
--- NOTE | 2025-01-30 14:57 | A.OFFPC_ITS ---
Vital Signs 01/30/25 15:00 Height 5 ft 8 in Weight 181 lb BMI 27.5 BP 120/60 Blood Pressure Location Rt brachial Position Sitting Respiration 14 Pulse 77 Pulse Source Pulse Oximeter Temp 97.9 F Temp Source Oral Pulse Oximetry (%) 99 Oxygen Delivery Method Room Air Intake Visit Reasons: Follow up f/u anxiety, HLD Intake Note: patient is scheduled for lab review Information Services Manager Required: No Allergies No Known Allergies Allergy (Verified 01/30/25 14:57) Medication List - Last Reconciled 01/30/25 by Sanjiv Wallace MD albuterol sulfate 90 mcg/actuation (Ventolin HFA) 2 puffs inhalation Q4-6H PRN 30 days atorvastatin 40 mg PO BEDTIME 90 days norethindrone ac-eth estradiol 1-20 mg-mcg (June) tabs PO Tobacco use date assessed: 04/11/24 Dental Screening Dental Screen Date: 04/11/24 HPI Follow up f/u anxiety, HLD HPI Details 59 y/o female presents to f/u rhoda H LD. Labs drawn 01/28/25. Reviewed labs with pt. Triglycerides 76. TC 149. LDL imporved from 171 to 94. HDL 40. She is on artovastatin 40mg. Pt notes anxiety has resolved as she is changing jobs. HPI Comments History of Present Illness Details Documentation assistance for Sanjiv Wallace MD, was provided by Dawit Walden,? Sh[employer] Peeling Machine Tender on 01/30/2025 at 3:25 PM EST. I, Dr. Wallace, have read, observed, and verified documentation. ?? PFSH Medical History (Updated 10/17/24 @ 16:04 by Dawit Walden) Uterine polyp IBS (irritable bowel syndrome) Allergies Asthma Surgical History (Updated 04/11/24 @ 10:11 by Bernie Gutierrez CMA) H/O colonoscopy H/O lumpectomy Family History (Updated 04/11/24 @ 10:14 by Bernie Gutierrez CMA) Maternal Aunt Breast cancer Maternal Grandmother Breast cancer Father Lung cancer Social History (Updated 04/11/24 @ 10:18 by Bernie Gutierrez CMA) Household Members: Spouse Both parents involved: No Caregiver staying overnight: No Housing: House Are you a primary morning caregiver to a significant other at home: No Do you presently have visiting nurse or other home services: No 75 years or older and lives alone: No Alcohol intake: never Patient Tobacco Use Status: Never used Tobacco e-Cigarette/Vaping Use: Never Used service: No Current occupational status: employed Current occupation: [employer]. Cognitive needs: No Hearing needs: No Vision needs: Yes (Patient wears glasses.) Questionnaire PHQ-9 Over the last 2 weeks, how often have you been bothered by any of the following problems? 1. Little interest or pleasure in doing things: not at all 2. Feeling down, depressed, or hopeless: not at all 3. Trouble falling or staying asleep, or sleeping too much: not at all 4. Feeling tired or having little energy: not at all 5. Poor appetite or overeating: not at all 6. Feeling bad about yourself - or that you are a failure or have let yourself or your family down: not at all 7. Trouble concentrating on things, such as reading the newspaper or watching television: not at all 8. Moving or speaking so slowly that other people could have noticed. Or the opposite - being so fidgety or restless that you have been moving around a lot more than usual: not at all 9. Thoughts that you would be better off or of hurting yourself in some way: not at all Total score: 0 Source: Developed by Drs. Bernardino Preston, Marie Lainez, Niitn Herrera and colleagues, with an educational darius from [employer]. Thrive Questionnaire Date Thrive assessed: 10/17/24 I am a: Patient What is your living situation today?: I choose not to answer this question Within the past 12 months, did the food you bought not last and you didn't have the money to get more?: I choose not to answer this question Within the past 12 months, did you worry whether your food would run out before you got money to buy more?: I choose not to answer this question Do you have trouble paying for medicines?: I choose not to answer this question Do you have trouble getting transportation to medical appointments?: I choose not to answer this question Do you have trouble paying your heating and electricity bill?: I choose not to answer this question Do you have trouble taking care of your child, family member or friend?: I choose not to answer this question Do you have trouble with day-to-day activities such as bathing, preparing meals, shopping, managing finances, etc.?: I choose not to answer this question Are you currently unemployed and looking for a job?: I choose not to answer this question Are you interested in more education?: I choose not to answer this question Please select the resources that you would like help with: None Currently or been in a relationship where the following occur: I choose not to answer THRIVE Score: 0 JERRICA-7 AMB Questionnaire JERRICA-7 Date JERRICA - 7 assessed: 07/06/24 Source: Developed by Drs. Bernardino Preston, Marie Lainez, Nitin Herrera and colleagues, with an educational darius from [employer]. Review of Systems Const Denies chills, Denies fatigue, Denies fever(s), Denies headache(s) and Denies weakness ENT Denies dizziness and Denies headache(s) Card Denies dyspnea Resp Denies cough, Denies dyspnea, Denies wheezing and Denies other (shortness of breath) Musc Denies numbness and Denies tingling Neuro Denies dizziness, Denies headache(s), Denies numbness, Denies tingling and Denies weakness Psych Denies anxiety and Denies depression Endo Denies fatigue Aller/Immun Denies wheezing Physical exam (Primary Care) Vital Signs: Last Vital Signs Temp 97.9 F 01/30/25 15:00 Pulse 77 01/30/25 15:00 Resp 14 01/30/25 15:00 BP 120/60 01/30/25 15:00 Pulse Ox 99 01/30/25 15:00 Oxygen Delivery Method Room Air 01/30/25 15:00 BMI result Body Mass Index 27.5 Tobacco/Smoking Status: Tobacco use Status Tobacco use date assessed 04/11/24 01/30/25 15:04 Patient Tobacco Use Status Never used Tobacco 01/30/25 15:04 e-Cigarette/Vaping Use Never Used 01/30/25 15:04 PHQ-9: PHQ-9 Score PHQ-9: Total score 0 01/30/25 15:22 Thrive Assessment: Date of Thrive Assessment Date Thrive assessed 10/17/24 01/30/25 15:04 Currently or been in a relationship where the following occur: I choose not to answer Const General: well developed; No acute distress Nutritional Appearance: well nourished Orientation/consciousness: patient oriented x3 HENMT Head: Yes normocephalic and Yes atraumatic Eyes General: appearance normal, both eyes and all related structures Pupils: Equal, round and reactive pupils present EOM: EOMs intact bilaterally Resp Effort & Inspection: normal respiratory effort Auscultation: clear to auscultation bilaterally Cardio Rate: regular rate Rhythm: regular rhythm Heart sounds: S1 normal heart sound present, S2 normal heart sound present, no gallops, no murmurs and no rubs Neuro General: patient oriented x3 and gait normal Cranial nerves: Yes Equal, round and reactive pupils present Psych Affect: normal affect Coding Level of Care Code Est Pt Level 3 (20538) Diagnoses Anxiety F41.9 Hypercholesteremia E78.00 Assessment & Plan Assessment & Plan (1) Anxiety: Code(s): F41.9 - Anxiety disorder, unspecified Category: Medical Plan: Anxiety?as?greatly?resolved?with determination?by patient?that?she?is?changing?jobs. She?did?not?take?buspirone.??Will?take?this?off?med?list. Call?or?return?to?office?if?any?new?problems. (2) Hypercholesteremia: Code(s): E78.00 - Pure hypercholesterolemia, unspecified Category: Medical Plan: Lipids?are?much?improved?on?atorvastatin?40?mg?daily. Continue?to?work?at?a?diet?low?in?saturated?fats?and?cholesterol Continue?exercise Will?follow Orders: Orders Comprehensive [place]. Panel Fast 5 Months E78.00 - Pure hypercholesterolemia, unspecified, Z00.00 - Encounter for general adult medical examination without abnormal findings Lipid Panel 5 Months E78.00 - Pure hypercholesterolemia, unspecified, Z00.00 - Encounter for general adult medical examination without abnormal findings
[2025-01-30 15:00] VITALS: BP 120/60; PULSE 77; RESP 14; TEMP 36.6; O2SAT 99; BMI 27.5
== END 2025-01-30 15:33 | disposition home or self-care (01) ==
LOC: HO.HMCFM 14:42
PROVIDERS: PCP Family Medicine; Visit Provider Family Medicine
DX: F41.9 Anxiety disorder, unspecified (principal); E78.00 Pure hypercholesterolemia, unspecified

== ENCOUNTER → 2025-01-30 14:42 | Outpatient (BNVA) | payer OTHER, SELFPAY | PROVIDERS: PCP Family Medicine; Visit Provider Family Medicine | DX: Z13.89 Encounter for screening for other disorder (principal) ==

== ENCOUNTER 2025-10-03 06:04 | Outpatient (REF) | payer BC, SELFPAY ==
[2025-10-03 07:37] LABS: Alanine Aminotransferase 16 U/L (0-31); Albumin Level 3.8 g/dL (3.5-5.0); Alkaline Phosphatase 72 U/L (39-117); Anion Gap 8 (12-20); Aspartate Amino Transferase 21 U/L (5-31); Blood Urea Nitrogen 15 mg/dL (9-16); Calcium 8.8 mg/dL (8.4-10.2); Carbon Dioxide 28 mmol/L (22-29); Chloride 108 mmol/L (96-108); Cholesterol 149 mg/dL (<200); Estimated Glomerular Filt Rate > 60; HDL Cholesterol 44 mg/dL (>40); Potassium 4.2 mmol/L (3.3-5.1); Sodium 140 mmol/L (135-145); Total Protein 6.5 g/dL (6.5-8.0); Triglycerides 64 mg/dL (<150)
== END 2025-10-03 06:05 | disposition home or self-care (01) ==
LOC: HO.LAB 06:04
PROVIDERS: PCP Family Medicine; Visit Provider Family Medicine
DX: Z00.00 Encounter for general adult medical examination without abnormal findings (principal); E78.00 Pure hypercholesterolemia, unspecified
CPT/HCPCS: 36415; 80053; 80061

== ENCOUNTER 2025-10-04 11:31 | Outpatient (AMB) | payer BC, SELFPAY ==
--- NOTE | 2025-10-04 11:42 | MHC.PC.OV ---
Vital Signs 10/04/25 11:47 Height 5 ft 8 in Weight 166 lb 6 oz BMI 25.3 BP 106/62 Blood Pressure Location Rt brachial Position Sitting Respiration 14 Pulse 73 Pulse Source Pulse Oximeter Temp 97.9 F Temp Source Temporal Artery Scan Pulse Oximetry (%) 98 Oxygen Delivery Method Room Air Intake Visit Reasons: f/u HLD Intake Note: Minnie presents in the office today to follow up to her cholesterol. Mgmt Analyst Required: No Is last menstrual period known: No Post menopausal: No Patient : No Allergies No Known Allergies Allergy (Verified 10/04/25 11:46) Tobacco use date assessed: 10/04/25 Dental Screening Dental Screen Date: 10/04/25 Did you have a dental visit in the last 12 months?: No Did you have a dental problem in the last 6 months where you did not have access to dental care?: No Was dental information given to patient?: Patient declined HPI f/u HLD HPI Details 59 y/o female presents to f/u HLD. Labs drawn 10/03/25. Reviewed labs with pt. Triglycerides 64. TC 149. LDL 93. HDL 44. She is on artovastatin 40mg. PFSH Medical History (Updated 10/17/24 @ 16:04 by Dawit Walden) Uterine polyp IBS (irritable bowel syndrome) Allergies Asthma Surgical History (Updated 04/11/24 @ 10:11 by Bernie Gutierrez [facility]) H/O colonoscopy H/O lumpectomy Family History Maternal Aunt Breast cancer Maternal Grandmother Breast cancer Father Lung cancer Social History (Updated 10/04/25 @ 11:46 by Charity Aguayo CMA) Household Members: Spouse Both parents involved: No Caregiver staying overnight: No Housing: House Are you a primary long term care phlebotomist to a significant other at home: No Do you presently have visiting nurse or other home services: No 75 years or older and lives alone: No Alcohol intake: never Patient Tobacco Use Status: Never used Tobacco e-Cigarette/Vaping Use: Never Used Second Hand Smoke Exposure: No Use of substances other than those prescribed or required for medical reasons: No Patient : No service: No Current occupational status: employed Current occupation: [employer]. Cognitive needs: No Hearing needs: No Vision needs: Yes (Patient wears glasses.) Questionnaire Thrive Questionnaire Date Thrive assessed: 10/17/24 What is your living situation today?: I choose not to answer this question Within the past 12 months, did the food you bought not last and you didn't have the money to get more?: I choose not to answer this question Within the past 12 months, did you worry whether your food would run out before you got money to buy more?: I choose not to answer this question Do you have trouble paying for medicines?: I choose not to answer this question Do you have trouble getting transportation to medical appointments?: I choose not to answer this question Do you have trouble paying your heating and electricity bill?: I choose not to answer this question Do you have trouble taking care of your child, family member or friend?: I choose not to answer this question Do you have trouble with day-to-day activities such as bathing, preparing meals, shopping, managing finances, etc.?: I choose not to answer this question Are you currently unemployed and looking for a job?: I choose not to answer this question Are you interested in more education?: I choose not to answer this question Currently or been in a relationship where the following occur: I choose not to answer THRIVE Score: 0 JERRICA-7 AMB Questionnaire JERRICA-7 Date JERRICA - 7 assessed: 07/06/24 Source: Developed by Drs. Bernardino Preston, Marie Lainez, Nitin Herrera and colleagues, with an educational darius from [employer]. Review of Systems Const Denies chills, Denies fatigue, Denies fever(s), Denies headache(s) and Denies weakness ENT Denies dizziness and Denies headache(s) Card Denies dyspnea Resp Denies cough, Denies dyspnea, Denies wheezing and Denies other (shortness of breath) Musc Denies numbness and Denies tingling Neuro Denies dizziness, Denies headache(s), Denies numbness, Denies tingling and Denies weakness Psych Denies anxiety and Denies depression Endo Denies fatigue Aller/Immun Denies wheezing Physical exam (Primary Care) Vital Signs: Last Vital Signs Temp 97.9 F 10/04/25 11:47 Pulse 73 10/04/25 11:47 Resp 14 10/04/25 11:47 BP 106/62 10/04/25 11:47 Pulse Ox 98 10/04/25 11:47 Oxygen Delivery Method Room Air 10/04/25 11:47 BMI result Body Mass Index 25.3 Tobacco/Smoking Status: Tobacco use Status Tobacco use date assessed 10/04/25 10/04/25 11:49 Patient Tobacco Use Status Never used Tobacco 10/04/25 11:46 e-Cigarette/Vaping Use Never Used 10/04/25 11:46 Thrive Assessment: Date of Thrive Assessment Date Thrive assessed 10/17/24 10/04/25 11:43 Currently or been in a relationship where the following occur: I choose not to answer Const General: well developed; No acute distress Nutritional Appearance: well nourished Orientation/consciousness: patient oriented x3 HENMT Head: Yes normocephalic and Yes atraumatic Eyes General: appearance normal, both eyes and all related structures Pupils: Equal, round and reactive pupils present EOM: EOMs intact bilaterally Resp Effort & Inspection: normal respiratory effort Auscultation: clear to auscultation bilaterally Cardio Rate: regular rate Rhythm: regular rhythm Heart sounds: S1 normal heart sound present, S2 normal heart sound present, no gallops, no murmurs and no rubs Neuro General: patient oriented x3 and gait normal Cranial nerves: Yes Equal, round and reactive pupils present Psych Affect: normal affect Coding Level of Care Code Est Pt Level 3 (59487) Diagnoses Hypercholesteremia E78.00 Assessment & Plan Assessment & Plan (1) Hypercholesteremia: Code(s): E78.00 - Pure hypercholesterolemia, unspecified Category: Medical Plan: LDL cholesterol and HDL cholesterol now in normal range on atorvastatin. She has lost about 15 lb and is exercising as well Continue current medication, exercise and ongoing weight loss
[2025-10-04 11:47] VITALS: BP 106/62; PULSE 73; RESP 14; TEMP 36.6; O2SAT 98; BMI 25.3
== END 2025-10-04 12:31 | disposition home or self-care (01) ==
LOC: HO.HMCFM 11:32
PROVIDERS: PCP Family Medicine; Visit Provider Family Medicine
DX: E78.00 Pure hypercholesterolemia, unspecified (principal)